=== PATIENT | female | born 1995 ===

== ENCOUNTER 2017-02-12 16:04 | Emergency (ER) | payer OTHER ==
[2017-02-12 16:38] VITALS: BP 117/72; PULSE 67; RESP 20; TEMP 97.3; O2SAT 96
--- NOTE | 2017-02-12 18:16 | ED PDOC ---
Upper Extremity Pain/Injury Time Seen by Provider: 02/12/17 17:32 Chief Complaint (Nursing): Upper Extremity Problem/Injury Chief Complaint (Provider): Right shoulder pain History Per: Patient History/Exam Limitations: no limitations Onset/Duration Of Symptoms: Days (x 6 months) Current Symptoms Are (Timing): Still Present Pain Scale Rating Of: 5 Exacerbating Factor(s): Worse At Night Additional Complaint(s): Eric Duncan is a 22 y/o female with no past medical history, who presents to the ED complaining of right shoulder pain that radiates down the right arm and into the right upper back that has been ongoing for the past 6 months. Patient denies any associated paresthesias or any known injury injury to the area. She states the pain is worse at night, and is currently rated a 5/ 10 on the pain scale. Patient is right hand dominant. She reports taking Ibuprofen this morning with temporary relief. Patient is currently menstruating. PMD: Non [facility] provider Past Medical History Reviewed: Historical Data, Nursing Documentation, Vital Signs Vital Signs: Last Vital Signs Temp 97.3 F L 02/12/17 16:36 Pulse 67 02/12/17 16:36 Resp 20 02/12/17 16:36 BP 117/72 02/12/17 16:36 Pulse Ox 96 02/12/17 16:36 - Medical History PMH: No Chronic Diseases - Family History Family History: States: Unknown Family Hx - Immunization History Hx Tetanus Toxoid Vaccination: Yes Hx Influenza Vaccination: Yes Hx Pneumococcal Vaccination: No - Home Medications Home Medications: Ambulatory Orders Medication Instructions Recorded Acetaminophen [Tylenol 325mg tab] 975 mg PO TID #20 tab 02/12/17 Naproxen [Naprosyn] 500 mg PO BID PRN #20 tablet 02/12/17 - Allergies Allergies/Adverse Reactions: Allergies Allergy/AdvReac Type Severity Reaction Status Date / Time No Known Allergies Allergy Verified 11/18/13 22:29 Review of Systems ROS Statement: Except As Marked, All Systems Reviewed And Found Negative Musculoskeletal: Positive for: Shoulder Pain (Right) Neurological: Negative for: Numbness (or paresthesias) Physical Exam - Reviewed Nursing Documentation Reviewed: Yes Vital Signs Reviewed: Yes - Physical Exam Appears: Positive for: Well, Non-toxic, No Acute Distress Head Exam: Positive for: ATRAUMATIC, NORMAL INSPECTION, NORMOCEPHALIC Skin: Positive for: Normal Color Eye Exam: Positive for: Normal appearance Extremity: Positive for: Normal ROM, Tenderness (to the right anterior shoulder over the bicep tendon and right scapular region), Other ((+) Lift off test, but otherwise full ROM). Negative for: Deformity Neurologic/Psych: Positive for: Alert, Oriented (x3). Negative for: Motor/ Sensory Deficits - ECG O2 Sat by Pulse Oximetry: 96 (RA) Pulse Ox Interpretation: Normal - Radiology X-Ray: Read By Radiologist X-Ray Interpretation: No Acute Disease Medical Decision Making Medical Decision Making: Time: 17:54 Initial Plan: --Tylenol 650 mg PO --X-Ray Right Shoulder Time: 18:21 X-Ray Right Shoulder: FINDINGS: BONES: No acute displaced fracture. The distal clavicle and underlying ribs appear intact. JOINTS: No acute dislocation. SOFT TISSUES: Soft tissues appear unremarkable. No evidence of radiopaque foreign body. IMPRESSION: No acute displaced fracture or dislocation evident. If symptoms persist or if there is continued clinical concern, x-ray follow-up in 7-10 days should be considered. X-Ray findings discussed with patient in detail, all questions answered. Patient is medically stable for discharge home. There is agreement to discharge plan. She was advised to f/u with PMD/Clinic, or Dr. Crowley, and return if symptoms persist or worsen. Scribe Attestation: Documented by Margarette Beltrán, acting as a scribe for Emily Abbott PA-C Provider Scribe Attestation: All medical record entries made by the Scribe were at my direction and personally dictated by me. I have reviewed the chart and agree that the record accurately reflects my personal performance of the history, physical exam, medical decision making, and the department course for this patient. I have also personally directed, reviewed, and agree with the discharge instructions and disposition. Disposition - Clinical Impression Clinical Impression: Shoulder pain, right - Patient ED Disposition Is Patient to be Admitted: No Counseled Patient/Family Regarding: Studies Performed, Diagnosis, Need For Followup, Rx Given - Disposition Referrals: Jaimie Prieto MD [Staff Provider] - [facility] [Outside] Disposition: Routine/Home Disposition Time: 18:39 Condition: STABLE Additional Instructions: Limit activity and overuse of right arm. Take medication as prescribed. Follow up with PMD/Clinic or orthopedist as advised. Prescriptions: Acetaminophen [Tylenol 325mg tab] 975 mg PO TID #20 tab Naproxen [Naprosyn] 500 mg PO BID PRN #20 tablet PRN Reason: Pain, Moderate (4-7) Forms: [employer] (Persian) Print Language: FIJIAN
--- NOTE | 2017-02-12 18:23 | RAD ---
PROCEDURE: Radiographs of the Right Shoulder HISTORY: pain COMPARISON: None available. FINDINGS: BONES: No acute displaced fracture. The distal clavicle and underlying ribs appear intact. JOINTS: No acute dislocation. SOFT TISSUES: Soft tissues appear unremarkable. No evidence of radiopaque foreign body. IMPRESSION: No acute displaced fracture or dislocation evident. If symptoms persist or if there is continued clinical concern, x-ray follow-up in 7-10 days should be considered.
== END 2017-02-12 18:53 | disposition home or self-care (01) ==
LOC: H.ER 16:04
DX: M25.511 Pain in right shoulder (principal)

== ENCOUNTER 2017-07-21 14:09 | Emergency (ER) | payer OTHER ==
[2017-07-21 14:15] VITALS: BP 138/95; PULSE 94; RESP 16; TEMP 98.3; O2SAT 98
--- NOTE | 2017-07-21 15:23 | ED PDOC ---
Upper Extremity Pain/Injury Time Seen by Provider: 07/21/17 14:36 Chief Complaint (Nursing): Upper Extremity Problem/Injury Chief Complaint (Provider): Upper Extremity Problem/Injury History Per: Patient History/Exam Limitations: no limitations Onset/Duration Of Symptoms: Days Current Symptoms Are (Timing): Still Present Additional Complaint(s): Eric Duncan is a 22 year old female with no significant past medical history, who is presenting to the ER for evaluation of right shoulder pain, ongoing for 6 months. Patient states that she was seen here in the past for similar complaints. She denies any trauma, injury, fever, neck, or back pain. Patient offers no other medical complaints at this time. PMD: none provided Past Medical History Reviewed: Historical Data, Nursing Documentation, Vital Signs Vital Signs: Last Vital Signs Temp 98.3 F 07/21/17 14:13 Pulse 94 H 07/21/17 14:13 Resp 16 07/21/17 14:13 BP 138/95 H 07/21/17 14:13 Pulse Ox 98 07/21/17 14:13 - Medical History PMH: No Chronic Diseases - Family History Family History: States: Unknown Family Hx - Immunization History Hx Tetanus Toxoid Vaccination: Yes Hx Influenza Vaccination: Yes Hx Pneumococcal Vaccination: No - Home Medications Home Medications: Ambulatory Orders Medication Instructions Recorded Acetaminophen [Tylenol 325mg tab] 975 mg PO TID #20 tab 02/12/17 Naproxen [Naprosyn] 500 mg PO BID PRN #20 tablet 02/12/17 Meloxicam [Mobic] 15 mg PO DAILY PRN #30 tab 07/21/17 - Allergies Allergies/Adverse Reactions: Allergies Allergy/AdvReac Type Severity Reaction Status Date / Time No Known Allergies Allergy Verified 07/21/17 14:13 Review of Systems ROS Statement: Except As Marked, All Systems Reviewed And Found Negative Constitutional: Negative for: Fever, Other (injury or trauma) Musculoskeletal: Positive for: Shoulder Pain (right). Negative for: Neck Pain, Back Pain Physical Exam - Reviewed Nursing Documentation Reviewed: Yes Vital Signs Reviewed: Yes - Physical Exam Comments: GENERAL APPEARANCE: Patient is awake, alert, oriented x 3, in no acute distress. SKIN: Warm, dry; (-) cyanosis. UPPER EXTREMITY: (+) mild right shoulder tenderness, (-) swelling, (-) deformity. (+) can abduct only up to 90 degrees. Elbow, hand and digits: (-) tenderness. Distal pulses, sensation and cap refill normal. NEURO AND PSYCH: Mental status as above. - ECG O2 Sat by Pulse Oximetry: 98 (RA) Pulse Ox Interpretation: Normal Medical Decision Making Medical Decision Making: Time: 15:15 Pervious medical records of patient were reviewed by provider. Patient was here in January 2017 for similar complaints. At the time she mentioned that the pain started six months ago, and had an X-Ray of the R shoulder done that was within normal limits. She was referred to orthopedics at the time. X-ray R shoulder results from last visit were reviewed with patient who admits that she has not followed up with orthopedics. Patient was given sling and advised to rest and ice shoulder. Patient strongly advised to follow up with orthopedics. Advised to follow up with orthopedics in 1-2 days without fail. Advised to rest and ice shoulder. Return to the emergency room at any time for any new or worsening symptoms. Patient states she fully agrees with and understands discharge instructions. States that she agrees with the plan and disposition. Verbalized and repeated discharge instructions and plan. I have given the patient opportunity to ask any additional questions. Scribe Attestation: Documented by Laure Delaney, acting as a scribe for Lizzy Haji PA-C. Provider Scribe Attestation: All medical record entries made by the Scribe were at my direction and personally dictated by me. I have reviewed the chart and agree that the record accurately reflects my personal performance of the history, physical exam, medical decision making, and the department course for this patient. I have also personally directed, reviewed, and agree with the discharge instructions and disposition. Disposition - Clinical Impression Clinical Impression: Chronic shoulder pain - Patient ED Disposition Is Patient to be Admitted: No Counseled Patient/Family Regarding: Diagnosis, Need For Followup, Rx Given - Disposition Referrals: Diomedes Pennington III, MD [Staff Provider] - Disposition: Routine/Home Disposition Time: 13:10 Condition: STABLE Additional Instructions: Thank you for letting us take care of you today. You were treated for chronic shoulder pain. The emergency medical care you received today was directed at your acute symptoms. If you were prescribed any medication, please fill it and take as directed. It may take several days for your symptoms to resolve. Return to the Emergency Department if your symptoms worsen, do not improve, or if you have any other problems. Please call one of the physicians/clinics you have been referred to that are listed on the Patient Visit Information form that is included in your discharge packet. Bring any paperwork you were given at discharge with you along with any medications you are taking to your follow up visit. Our treatment cannot replace ongoing medical care by a primary care provider (PCP) outside of the emergency department. Thank you for allowing the [facility] team to be part of your care today. Prescriptions: Meloxicam [Mobic] 15 mg PO DAILY PRN #30 tab PRN Reason: Pain, Moderate (4-7) Instructions: Shoulder Pain (DC) Forms: [employer] ([place]), [facility] ED School/Work Excuse - PA / VIAL GAUGER / Resident Statement / has reviewed & agrees with the documentation as recorded.
== END 2017-07-21 15:32 | disposition home or self-care (01) ==
LOC: H.ER 14:09
DX: M25.511 Pain in right shoulder (principal); G89.29 Other chronic pain